=== PATIENT | male | born 1980 | race Caucasian/White ===

== ENCOUNTER 2021-05-31 13:28 | Outpatient (CLI) | payer MEDICARE, MEDICAID, SELFPAY ==
--- NOTE | 2021-05-31 13:30 | RT.EKG_ITS ---
APPROVED REPORT Exam: Resting ECG Reason for Exam: New Patient Office Visit Patient Location: O HR:64 bpm ECG Measurements Heart Rate 64 AXIS TN 150 P 10 QRSd 93 QRS 26 QT 406 T 22 QTc 419 Conclusion Sinus rhythm...normal P axis, V-rate 50- 99 Normal Electrocardiogram
== END 2021-05-31 13:29 | disposition home or self-care (01) ==
LOC: DI.CARD 13:40
PROVIDERS: PCP Internal Medicine; Referring Provider Internal Medicine; Visit Provider Internal Medicine Cardiovascular Disease
DX: I20.9 Angina pectoris, unspecified (principal)
CPT/HCPCS: 93010

== ENCOUNTER → 2021-05-31 13:28 | Outpatient (BNVA) | payer MEDICARE, MEDICAID, SELFPAY | PROVIDERS: PCP Internal Medicine; Referring Provider Internal Medicine; Visit Provider Internal Medicine Cardiovascular Disease | DX: R06.00 Dyspnea, unspecified (principal); I10 Essential (primary) hypertension; F17.210 Nicotine dependence, cigarettes, uncomplicated; E66.01 Morbid (severe) obesity due to excess calories; G47.33 Obstructive sleep apnea (adult) (pediatric); E78.5 Hyperlipidemia, unspecified | CPT/HCPCS: 93005; 99203 ==

== ENCOUNTER 2021-06-04 00:04 | Outpatient (CLI) | payer MEDICARE, MEDICAID, SELFPAY ==
--- NOTE | 2021-06-04 06:42 | DI.NM_ITS ---
APPROVED REPORT Exam: Pharmacologic Patient Location: Out-Patient Room/Bed: Stress Nurse: Merline Ruby RN Ordering Provider:TARA LEVIN, Contact Number: BMI: 41.38 Baseline Rhythm: Sinus Rhythm Indications: EXERTIONAL DYSPNEA, HYPERTENSION, SMOKER Medical History Medical History: Tobacco use, Obesity, [place], HTN, Palpitations, Depression, HLD, Hypothyroidism Cardiac Medications: Metoprolol succinate, Lisinopril, Levothyroxine, Atorvastatin Allergies: No known drug allergies Cardiac Risk Factors: HTN, Hyperlipidemia, FHX of CAD, Smoking (current), Obesity Previous Cardiac Procedures: None Pretest Chest Pain Characteristics: No chest pain Exercise History: Sedentary Physical Disabilities: None Lung Sounds: Clear to auscultation Heart Sounds: Regular Stress Test Details Test: Exercise stress converted to pharmacologic stress due to failure to obtain a diagnostic stress test. Reason for pharmacologic stress test: changed from exercise stress test due to inability to reach t arget heart rate. Nuclear Acquisition: Rest Tc-99m/Stress Tc-99m 1 day Rest Isotope: Tc-99m Sestamibi. Dose: 14.5 Date: 06/04/2021 Injection Time: 0900 Stress Isotope: Tc-99m Sestamibi. Dose: 46.1 Date: 06/04/2021 Injection Time: 1036 HR Resting HR Supine: 61 bpm Max Heart Rate (APMHR): 179 bpm Resting HR Standin bpm Target HR (85% APMHR): 152 bpm Max HR Achieved: 129 bpm % of APMHR: 72 Recovery HR: 82 bpm HR response to stress: Blunted HR response to stress Comment: Metoprolol succinate not held for test. BP Resting BP Supine: 122/86 mmHg Resting BP Standin/82 mmHg Max BP: 158/68 mmHg Recovery BP: 134/72 mmHg BP response to stress: Normal blood pressure response to stress. ECG Resting ECG: Sinus Rhythm Ectopy: None Stress ECG: Sinus Tachycardia ST Change: No significant ST segment changes noted Arrhythmia: None Recovery ECG: Sinus Rhythm Recovery ST Change: No significant ST segment changes noted Recovery Arrhythmia: None Clinical Reason for Termination: Dyspnea Stress Symptoms: Dyspnea Exercise duration: 08 min25 sec Highest Stage Reached: Stage 3: 3.4 mph at 14% grade. Exercise capacity: 10.16 METs Ho Treadmill Score: 8.5 Rate Pressure Product: Stress ECG Conclusion 1. Resting electrocardiogram was normal 2. Patient exercised on the Antoine protocol and completed a workload of 10.16 METS, limited by shortne ss of breath 3. Blunted heart rate response to exercise, possibly due to beta-zulema. Normal blood pressure resp onse to exercise. The patient achieved 72% of predicted heart rate for age and received additional p harmacologic stress with regadenoson 4. Electrocardiographically the test was nondiagnostic due to inadequate heart rate Ho Treadmill Score is 8.5 which is Low risk. Stress Test Summary STAGE Time (mins) Speed (mph) Grade (%) HR BP SYMPTOMS METS Supine 61 122/82 Standing 73 128/82 1 3 1.7 10 106 134/84 SpO2 96% 4.6 2 6 2.5 12 118 144/86 SpO2 95%, mod SOB 7 1 min post Lexiscan injection 106 158/68 mod SOB 3 min post Lexiscan injection 92 138/72 Symptoms resolved 6 min post Lexiscan injection 82 134/72 MPI Conclusion Normal myocardial perfusion without evidence of ischemia or prior infarction EF 49% Radiologist Interpretation Radiologist agrees with Radio Presenter's Interpretation. Radiologist Interpretation by: Jose Luis Tolliver MD Interpretation Date/Time: 06/04/2021 14:24:42
[2021-06-04] MEDS: Regadenoson 0.4 MG/5 ML SYR IVP (10:47)
== END 2021-06-04 00:24 ==
PROVIDERS: PCP Internal Medicine; Visit Provider Internal Medicine Cardiovascular Disease
DX: R06.09 Other forms of dyspnea; R94.39 Abnormal result of other cardiovascular function study; I10 Essential (primary) hypertension; F17.210 Nicotine dependence, cigarettes, uncomplicated; E78.5 Hyperlipidemia, unspecified; Z82.49 Family history of ischemic heart disease and other diseases of the circulatory system; E66.9 Obesity, unspecified; Z68.41 Body mass index [BMI] 40.0-44.9, adult
CPT/HCPCS: 78452; 93016; 93018; 93017; J2785